=== PATIENT | male | born 1975 | race Caucasian/White ===

== ENCOUNTER 2023-08-17 08:00 | Outpatient (CLI) | payer OTHER, SELFPAY | END 2023-08-17 08:01 | disposition home or self-care (01) | LOC: NFLDREF 08-19 11:58 | PROVIDERS: PCP Family Medicine; Referring Provider Family Medicine; Visit Provider Family Medicine | DX: E78.5 Hyperlipidemia, unspecified (principal); Z13.1 Encounter for screening for diabetes mellitus | CPT/HCPCS: 80061; 82947 ==

== ENCOUNTER 2023-09-18 09:57 | Outpatient (CLI) | payer OTHER, SELFPAY ==
--- NOTE | 2023-09-18 11:07 | W.ANESCHARGE ---
Anesthesia Charges Start Date/Time Anesthesia Start Date: 09/18/23 Anesthesia Start Time: 10:30 Stop Date/Time Anesthesia Stop Date: 09/18/23 Anesthesia Stop Time: 11:02
--- NOTE | 2023-09-18 11:20 | W.ANESCHARGE ---
Anesthesia Charges Start Date/Time Anesthesia Start Date: 09/18/23 Anesthesia Start Time: 10:30 Stop Date/Time Anesthesia Stop Date: 09/18/23 Anesthesia Stop Time: 11:02
== END 2023-09-18 09:58 | disposition home or self-care (01) ==
LOC: OP CLINIC 09:58
PROVIDERS: PCP Family Medicine; Visit Provider Internal Medicine
DX: Z12.11 Encounter for screening for malignant neoplasm of colon (principal); K63.5 Polyp of colon
CPT/HCPCS: 00811; 45380; 88305; J2704